=== PATIENT | female | born 1955 | race Caucasian/White ===

== ENCOUNTER 2020-10-08 11:38 | Emergency (ER) | payer OTHER ==
[~2020-10-08] VITALS: Ht 162.6 cm; Wt 59.0 kg
[2020-10-08] MEDS ORDERED: BACLOFEN20 MG PO (12:11)
[2020-10-08] MEDS ORDERED: NORVASC 2.5 MG2.5 M1 PO ×2 (12:11→12:30)
[2020-10-08] MEDS ORDERED: GABAPENTIN600 M1 PO (12:12)
[2020-10-08] MEDS ORDERED: SLOW FE142 MG PO (12:12)
[2020-10-08] MEDS ORDERED: FUROSEMIDE 80 M80 M1 PO (12:12)
[2020-10-08] MEDS ORDERED: CENTRUM SILVER1 EAC4 PO (12:12)
[2020-10-08] MEDS ORDERED: MELATONIN3 M1 PO (12:13)
[2020-10-08] MEDS ORDERED: METHOCARBAMOL750 MG PO (12:13)
[2020-10-08] MEDS ORDERED: POTASSIUM20 PO (12:14)
[2020-10-08] MEDS ORDERED: SODIUM CHLORIDE1 G2 PO (12:14)
[2020-10-08] MEDS ORDERED: OXYCODONE HCL5 MG PO (12:14)
[2020-10-08] MEDS ORDERED: ZOLOFT 50 MG TA50 MG PO (12:14)
[2020-10-08] MEDS ORDERED: VITAMINE B-1100 MG PO (12:15)
[2020-10-08] MEDS ORDERED: TRIDERM28.4 GM TOP (12:15)
[2020-10-08] MEDS ORDERED: VITAMIN A2400 MCG PO (12:16)
[2020-10-08] MEDS ORDERED: BACLOFEN 10MG T10 MG PO (12:31)
[2020-10-08] MEDS ORDERED: CENTRAVITES 501 EAC1 PO (12:32)
[2020-10-08] MEDS ORDERED: HIGH POTENCY I134 MG PO (12:35)
[2020-10-08 13:05] VITALS: BP 163/84
== END 2020-10-08 16:32 | disposition admitted as inpatient to this hospital (09) ==
LOC: ER 11:38
PROVIDERS: Emergency Medicine
DX: F29 Unspecified psychosis not due to a substance or known physiological condition (principal); I10 Essential (primary) hypertension; Z79.899 Other long term (current) drug therapy; Z88.8 Allergy status to other drugs, medicaments and biological substances; Z20.822 Contact with and (suspected) exposure to COVID-19